=== PATIENT | female | born 1985 | race African-American/Black ===

== ENCOUNTER 2025-02-22 19:56 | Emergency (ER) | payer BC, OTHER ==
[2025-02-22] MEDS ORDERED: Acetaminophen 325 MG TAB ONE (20:48)
== END 2025-02-22 21:54 | disposition home or self-care (01) ==
LOC: ERS 19:56
DX: S50.812A Abrasion of left forearm, initial encounter (principal); M25.562 Pain in left knee; V43.52XA Car driver injured in collision with other type car in traffic accident, initial encounter
CPT/HCPCS: 90471; 90715; G0390